=== PATIENT | female | born 1950 | race Caucasian/White ===

== ENCOUNTER 2022-01-27 15:53 | Observation (INO) | payer MEDICARE ==
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
[2022-01-27 17:40] LABS: Absolute Neutrophil Ct (ANC) 6.57 (1.4-6.9); Basophil (Absolute #) 0.03 (0-0.4); Eosinophil % 2.4 % (0.00-5.0); Eosinophil (Absolute #) 0.26 (0-0.5); Hematocrit 40.4 % (35-47); Hemoglobin 12.7 gm/dl (12.0-16.0); Lymphocyte (Absolute #) 2.94 (1.0-4.6); Lymphocytes % 26.7 % (24.0-44.0); Mean Cell Volume 91.8 fl (78-100); Mean Corpuscular Hemoglobin 28.9 pg (26-32); Mean Corpuscular Hgb Concent. 31.4 g/dl (32-36); Mean Platelet Volume 9.8 fl (7.5-11.0); Monocyte (Absolute #) 1.23 (0.0-1.3); Monocytes % 11.2 % (0.0-12.0); Neutrophil % 59.4 % (36.0-66.0); Platelet Count 313 K/mm3 (150-450); Red Cell Distribution Width 15.1 % (11.5-14.0)
[2022-01-27 17:52] LABS: INR 2.09 (0.8-3.0); PROTIME 24.7 SECONDS (9.4-12.5)
[2022-01-27 17:55] LABS: PTT 41.5 SECONDS (25.1-36.5)
[2022-01-27 18:06] LABS: ALBUMIN 3.7 g/dL (3.5-5.0); BILIRUBIN,TOTAL 0.5 mg/dL (0.2-1.3); Calcium 8.7 mg/dL (8.4-10.2); Creatinine 1 1.15 mg/dL (0.52-1.04); EST GLOMERULAR FILTRATION RATE 49.2 ML/MIN; Total Protein 7.2 g/dL (6.3-8.2)
[2022-01-27] MEDS ORDERED: MILK OF MAGNESIA 30 ML PO PRN (20:21)
[2022-01-27] MEDS ORDERED: TYLENOL 325 MG PO PRN (20:21)
[2022-01-27] MEDS ORDERED: MAALOX ES 30 ML UNIT DOSE PO PRN (20:21)
[2022-01-27] MEDS ORDERED: Senokot-S Tablet PO PRN (20:21)
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
[2022-01-27 21:56] LABS: Appearance CLEAR (CLEAR); Bilirubin NEGATIVE (NEGATIVE); Glucose NEGATIVE (NEGATIVE); Ketones NEGATIVE (NEGATIVE); Ph 5.5 (5-6); Protein,Urine Dip NEGATIVE (Negative); RBC TRACE-INTACT Ery/ul (0-5); Specific Gravity 1.025 (1.005-1.025); Urobilinogen 0.2 mg/dL (0-1)
[2022-01-27 21:57] LABS: Dipstick done @ ? MAIN LAB; Nitrite NEGATIVE (NEGATIVE)
[2022-01-27 22:03] LABS: Bacteria RARE /HPF (NEGATIVE); Epithelial Cells RARE /HPF (FEW); Mucus SLIGHT /HPF (NEGATIVE); RBC 0-2 /HPF (0-2)
[2022-01-27 22:08] LABS: Urine Cultured Indicated? YES
[2022-01-27] MEDS ORDERED: Betapace 80 MG ONE (22:50)
[2022-01-27] MEDS: Betapace 80 MG PO SCH ×2 (22:53→23:15)
[2022-01-27] MEDS: Klor Con 10 MEQ PO SCH (22:54)
[2022-01-28] MEDS: Betapace 80 MG PO SCH ×2 (07:26→09:12)
[2022-01-28 08:21] VITALS: O2SAT 94
[2022-01-28] MEDS ORDERED: NON-FORMULARY ITEM (Alendronate Sodium [Alendronate Sodium] 35 MG Tablet) PO SCH (08:45)
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
[2022-01-28] MEDS ORDERED: MEDICATION INTERVENTION MC SCH (09:00)
[2022-01-28] MEDS: Klor Con 10 MEQ PO SCH (09:13)
[2022-01-28] MEDS ORDERED: MYRBETRIQ PO SCH (10:00)
[2022-01-28] MEDS ORDERED: SYNTHROID 125 MCG PO SCH (10:00)
[2022-01-28] MEDS ORDERED: SYNTHROID 100 MCG PO SCH (10:00)
[2022-01-28] MEDS ORDERED: XARELTO 10 MG TABLET PO SCH (10:00)
[2022-01-28] MEDS ORDERED: NON-FORMULARY ITEM (Solifenacin Succinate [Solifenacin Succinate] 5 MG Tablet) PO SCH (10:00)
[2022-01-28] MEDS ORDERED: Protonix 40MG Tablet PO SCH (10:00)
[2022-01-28] MEDS ORDERED: NON-FORMULARY ITEM (Mirabegron [Myrbetriq] 50 MG Tab.Er.24h) PO SCH (10:00)
[2022-01-28] MEDS ORDERED: NORVASC 5 MG PO SCH (10:00)
[2022-01-28] MEDS ORDERED: Cozaar 50 MG PO SCH (10:00)
[2022-01-28] MEDS ORDERED: NON-FORMULARY ITEM (Omeprazole [Omeprazole] 20 MG Capsule.Dr) PO SCH (10:00)
[2022-01-28] MEDS ORDERED: NON-FORMULARY ITEM (Rivaroxaban [Xarelto] 15 MG Tablet) PO SCH (10:00)
[2022-01-28] MEDS ORDERED: Lasix 40 MG PO SCH (10:00)
[2022-01-28 12:26] VITALS: BP 118/66; PULSE 58
--- NOTE | 2022-01-28 14:41 | XRAY ---
Indication: Syncopal episode. Two-dimensional sonogram and color Doppler imaging of the carotid arteries of the neck performed. Comparison: May 14, 2009. Examination of the right carotid circulation demonstrates tortuous common carotid and distal internal carotid arteries. No focal arteriosclerotic plaquing, critical stenosis, or obstruction. PSV of the CCA is 65 cm/s. PSV of the ICA is 85 cm/s. ICA/CCA ratio is 1.3. Normal antegrade vertebral artery flow. Examination of the left carotid circulation demonstrates widely patent common carotid, carotid bulb, internal carotid, and external carotid arteries. PSV of the CCA is 36 cm/s. PSV of the ICA is 51 cm/s. ICA/CCA ratio is 1.4. Normal antegrade vertebral artery flow. Impression: Left and right carotid arteries of the neck remain negative for critical stenosis/obstruction. Velocity measurements and ratios remain negative for hemodynamically significant flow-limiting stenosis.
--- NOTE | 2022-01-28 17:25 | PCM.DS ---
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 DAILY Furosemide 40 mg [Lasix 40 MG] 40 mg PO DAILY Amlodipine Besylate 5 mg [Norvasc 5 mg] 5 mg PO DAILY Losartan Potassium 50 mg [Cozaar 50 MG] 50 mg PO DAILY Sotalol HCl 80 mg [Betapace 80 MG] 40 mg PO BID Omeprazole 20 mg PO DAILY Alendronate Sodium 35 mg PO WEEKLY Mirabegron [Myrbetriq] 50 mg PO DAILY Instructions: Ciprofloxacin (Systemic) Follow up with: PAIGE DAVIS [ACTIVE STAFF] - 01/29/22 10:15 am ELEANOR PEGUERO MD [Primary Care Provider] - 02/05/22 2:45 pm Forms: Discharge Instructions
[2022-02-03] MEDS ORDERED: Fosamax 70 MG PO SCH (06:00)
[2022-02-03] MEDS ORDERED: VITAMIN D2 PO SCH (10:00)
== END 2022-01-28 15:10 | disposition home or self-care (01) ==
LOC: ED 15:53 → MED SURG 20:15
PROVIDERS: ADMIT General Practice; ATTEND General Practice
DX: R55 Syncope and collapse (principal); V47.5XXA Car driver injured in collision with fixed or stationary object in traffic accident, initial encounter; N39.0 Urinary tract infection, site not specified; Z79.899 Other long term (current) drug therapy; M54.2 Cervicalgia; R51.9 Headache, unspecified; M25.562 Pain in left knee; I10 Essential (primary) hypertension; Z20.828 Contact with and (suspected) exposure to other viral communicable diseases
CPT/HCPCS: 36000; 36415; 70450; 71250; 72125; 73560; 80053; 80061; 81015; 83721; 83880; 84484; 85025; 85610; 85730; 87086; 93005; 93041; 93268; 93880; 94760; 99285; A9270-GY; G0378

== ENCOUNTER 2024-03-27 10:34 | Emergency (ER) | payer MEDICARE ==
--- NOTE | 2024-03-27 10:44 | ERPHSYRPT ---
- History of Present Illness Time Seen by Provider: 03/27/24 10:35 Historian: patient Exam Limitations: no limitations Patient Subjective Stated Complaint: Left-sided chest pain Physician History: Patient is a 74-year-old female who takes Xarelto for atrial fibrillation as well as sotalol to help with rate control who comes in with 2 episodes over the last 12 hours of brief intermittent left-sided chest pain. She denies any symptoms currently. She denies any specific triggers to either episode. States both episodes lasted less than 10 minutes. She states she did not have to do anything to resolve her pain. She comes in for further evaluation due to the encouragement of her family. Patient denies any recent fever, cough, pain on inspiration, new back pain, new focal weakness in the arms or legs, new change in vision or slurred speech, new black or red stools, new nausea or vomiting, new blood in her urine, new painful urination or any episodes of vomiting coughing up blood at any time. Patient has not been evaluated or treated by anyone prior to coming to the emergency department today. Timing/Duration: today, yesterday, intermittent, resolved prior to arrival, sudden Activities at Onset: none Quality: aching Location: other (Left lateral chest) Chest Pain Radiation: no radiation Severity of Pain-Max: mild Severity of Pain-Current: none Modifying Factors: Improves With: nothing Associated Symptoms: No nausea, No vomiting, No palpitations, No heartburn, No abdominal pain, No shortness of breath, No cough, No hurts to breathe, No diaphoresis, No chills, No fever, No fatigue, No weakness, No syncope, No rash, No headache, No dizziness, No edema, No back pain Prior Chest Pain/Cardiac Workup: echocardiography Nitro Today/Relief: no nitro taken today Aspirin Treatment Today: no aspirin today Allergies/Adverse Reactions: No Known Drug Allergies Allergy (Verified 07/06/23 12:43) Home Medications: Alendronate Sodium 35 mg PO WEEKLY 01/27/22 [History] Amlodipine Besylate 5 mg [Norvasc 5 mg] 5 mg PO DAILY 01/27/22 [History] Ergocalciferol (Vitamin D2) [Vitamin D2] 1 cap PO WEEKLY 01/27/22 [History] Furosemide 40 mg [Lasix 40 MG] 40 mg PO DAILY 01/27/22 [History] Levothyroxine Sodium [Euthyrox] 125 mcg PO DAILY 01/27/22 [History] Losartan Potassium 50 mg [Cozaar 50 MG] 50 mg PO DAILY 01/27/22 [History] Mirabegron [Myrbetriq] 50 mg PO DAILY 01/27/22 [History] Omeprazole 20 mg PO DAILY 01/27/22 [History] Potassium Chloride 10 meq PO BID 01/27/22 [History] Rivaroxaban [Xarelto] 15 mg PO DAILY 01/27/22 [History] Sotalol HCl 80 mg [Betapace 80 MG] 40 mg PO BID 01/27/22 [History] Hx Tetanus, Diphtheria Vaccination/Date Given: No Hx Influenza Vaccination/Date Given: Yes Immunizations Up to Date: Yes - Review of Systems Constitutional: No Fever, No Chills Eyes: No Symptoms, No Eye Pain, No Vision Changes Ears, Nose, & Throat: No Symptoms, No Nose Congestion, No Nose Discharge, No Painful Swallowing Respiratory: No Cough, No Dyspnea Cardiac: Chest Pain, No Edema, No Syncope, No PND Abdominal/Gastrointestinal: No Abdominal Pain, No Nausea, No Vomiting, No Diarrhea Genitourinary Symptoms: No Dysuria Musculoskeletal: No Back Pain, No Neck Pain Skin: No Rash Neurological: No Dizziness, No Focal Weakness, No Sensory Changes Psychological: No Symptoms, No Anxiety, No Emotional Lability Endocrine: No Symptoms Hematologic/Lymphatic: Easy Bruising, No Easy Bleeding All Other Systems: Reviewed and Negative - Past Medical History Pertinent Past Medical History: Yes Neurological History: No Pertinent History ENT History: No Pertinent History Cardiac History: Arrhythmia, Hypertension Respiratory History: No Pertinent History Endocrine Medical History: Hypothyroidism Musculoskeletal History: No Pertinent History GI Medical History: Hemorrhoids History: No Pertinent History Psycho-Social History: No Pertinent History Female Reproductive Disorders: No Pertinent History - Past Surgical History Past Surgical History: Yes Neuro Surgical History: No Pertinent History Cardiac: No Pertinent History Respiratory: No Pertinent History Gastrointestinal: Cholecystectomy, Hemorrhoidectomy Genitourinary: No Pertinent History Musculoskeletal: Orthopedic Surgery Female Surgical History: No Pertinent History - Social History Smoking Status: Never smoker Exposure to second hand smoke: No Drug Use: none Patient Lives Alone: No - Nursing Vital Signs Nursing Vital Signs: Initial Vital Signs Temperature 98.2 F 03/27/24 10:38 Pulse Rate 63 03/27/24 10:38 Respiratory Rate 16 03/27/24 10:38 Blood Pressure 159/83 03/27/24 10:38 O2 Sat by Pulse Oximetry 96 03/27/24 10:38 Pain Scale Pain Intensity 0 - Physical Exam General Appearance: no apparent distress, alert Eye Exam: PERRL/EOMI, eyes nml inspection Ears, Nose, Throat Exam: normal ENT inspection, TMs normal, pharynx normal, moist mucous membranes Neck Exam: normal inspection, non-tender, supple, full range of motion Respiratory Exam: normal breath sounds, lungs clear, No respiratory distress Cardiovascular Exam: regular rate/rhythm, normal heart sounds Gastrointestinal/Abdomen Exam: soft, normal bowel sounds, No tenderness, No distention, No mass, No guarding, No rebound Back Exam: normal inspection, No CVA tenderness, No vertebral tenderness Extremity Exam: normal inspection, normal range of motion, pelvis stable Neurologic Exam: alert, oriented x 3, cooperative, nremt II-XII nml as tested, nor mal mood/affect, nml cerebellar function, sensation nml, No motor deficits Skin Exam: normal color, warm, dry SpO2 Interpretation: normal O2 Delivery: Room Air - Course Nursing assessment & vital signs reviewed: Yes EKG Interpreted by Me: RATE (65), Sinus Rhythm, NORMAL AXIS, NORMAL INTERVALS, NORMAL QRS, NORMAL ST-T, Other (Normal sinus rhythm 65 bpm, normal axis, normal [place] and QTc intervals, with no signs of any acute ST or T wave changes with low voltage in precordial leads, with no change changes in this EKG in comparison to EKG from 01/28/2022) - Radiology Exams Chest X-ray Interpretation: Reviewed by me, No Pneumonia, No Pneumothorax, No Infiltrates, Nml Mediastinum, Other (Incidental tortuous ascending aorta with osteopenia and mild double curvature scoliosis per radiologist interpreted) Ordered Tests: Active Orders 24 hr Category Date Time Status Manufacturing Advisor STAT Care 03/27/24 10:37 Active EKG-ER Only STAT Care 03/27/24 10:36 Active IV Insertion STAT Care 03/27/24 10:36 Active CHEST 1 VIEW (PORTABLE) Stat Exams 03/27/24 10:36 Completed CBC W DIFF Stat Lab 03/27/24 10:42 Completed CK-Creatinine Phosphokinase Stat Lab 03/27/24 10:42 Completed CMP Stat Lab 03/27/24 10:42 Completed LIPASE Stat Lab 03/27/24 10:42 Completed Lactic Acid Stat Lab 03/27/24 10:47 Completed MAGNESIUM Stat Lab 03/27/24 10:42 Completed NT PRO BNPII Stat Lab 03/27/24 10:42 Completed PROTIME WITH INR Stat Lab 03/27/24 10:42 Completed TROPONIN Q4H Lab 03/27/24 10:42 Completed TROPONIN Q4H Lab 03/27/24 14:45 Ordered TROPONIN Q4H Lab 03/27/24 18:45 Ordered TSH, 3RD Generation Stat Lab 03/27/24 10:42 Completed Lab/Rad Data: Laboratory Result Diagrams 03/27/24 10:42 03/27/24 10:42 Laboratory Results 03/27/24 03/27/24 03/27/24 Range/Units 10:47 10:42 10:42 WBC (4.0-10.5) x10^3/uL RBC (4.1-5.4) x10^6/uL Hgb (12.0-16.0) g/dL Hct (35-47) % MCV (78-100) fL MCH (26-32) pg MCHC (32-36) g/dL RDW (11.5-14.0) % Plt Count (150-450) x10^3/uL MPV (7.5-11.0) fL Gran % (36.0-66.0) % Immature Gran % (Auto) (0.00-0.4) % Nucleat RBC Rel Count (0.00-0.1) % Eos # (Auto) (0-0.5) x10^3/uL Immature Gran # (Auto) (0.00-0.03) x10^3u/L Absolute Lymphs (auto) (1.0-4.6) x10^3/uL Absolute Monos (auto) (0.0-1.3) x10^3/uL Absolute Nucleated RBC (0.00-0.01) x10^3u/L Lymphocytes % (24.0-44.0) % Monocytes % (0.0-12.0) % Eosinophils % (0.00-5.0) % Basophils % (0.0-0.4) % Absolute Granulocytes (1.4-6.9) x10^3/uL Basophils # (0-0.4) x10^3/uL PT 15.7 H (9.4-12.5) SECONDS INR 1.48 (0.8-3.0) Sodium (135-145) mmol/L Potassium (3.5-5.1) mmol/L Chloride (98-107) mmol/L Carbon Dioxide (22-30) mmol/L Anion Gap (5-15) MEQ/L BUN (7-17) mg/dL Creatinine (0.52-1.04) mg/dL Estimated GFR ML/MIN Glucose (74-106) mg/dL Lactic Acid 1.7 (0.4-2.0) Calcium (8.4-10.2) mg/dL Magnesium (1.6-2.3) mg/dL Total Bilirubin (0.2-1.3) mg/dL AST (14-36) U/L ALT (0-35) U/L Alkaline Phosphatase (38-126) U/L Creatine Kinase (30-135) U/L Troponin I < 0.012 (0.000-0.033) ng/mL NT-Pro-B Natriuret Pep (<300) pg/mL Serum Total Protein (6.3-8.2) g/dL Albumin (3.5-5.0) g/dL Lipase (23-300) U/L TSH 3rd Generation (0.470-4.680) mIU/L 03/27/24 03/27/24 Range/Units 10:42 10:42 WBC 7.5 (4.0-10.5) x10^3/uL RBC 4.52 (4.1-5.4) x10^6/uL Hgb 13.5 (12.0-16.0) g/dL Hct 41.1 (35-47) % MCV 90.9 (78-100) fL MCH 29.9 (26-32) pg MCHC 32.8 (32-36) g/dL RDW 13.2 (11.5-14.0) % Plt Count 306 (150-450) x10^3/uL MPV 10.0 (7.5-11.0) fL Gran % 56.6 (36.0-66.0) % Immature Gran % (Auto) 0.3 (0.00-0.4) % Nucleat RBC Rel Count 0.0 (0.00-0.1) % Eos # (Auto) 0.12 (0-0.5) x10^3/uL Immature Gran # (Auto) 0.02 (0.00-0.03) x10^3u/L Absolute Lymphs (auto) 2.32 (1.0-4.6) x10^3/uL Absolute Monos (auto) 0.75 (0.0-1.3) x10^3/uL Absolute Nucleated RBC 0.00 (0.00-0.01) x10^3u/L Lymphocytes % 31.0 (24.0-44.0) % Monocytes % 10.0 (0.0-12.0) % Eosinophils % 1.6 (0.00-5.0) % Basophils % 0.5 (0.0-0.4) % Absolute Granulocytes 4.23 (1.4-6.9) x10^3/uL Basophils # 0.04 (0-0.4) x10^3/uL PT (9.4-12.5) SECONDS INR (0.8-3.0) Sodium 141 (135-145) mmol/L Potassium 3.8 (3.5-5.1) mmol/L Chloride 104 (98-107) mmol/L Carbon Dioxide 29 (22-30) mmol/L Anion Gap 12.0 (5-15) MEQ/L BUN 21 H (7-17) mg/dL Creatinine 1.24 H (0.52-1.04) mg/dL Estimated GFR 45.1 ML/MIN Glucose 199 H (74-106) mg/dL Lactic Acid (0.4-2.0) Calcium 9.7 (8.4-10.2) mg/dL Magnesium 2.0 (1.6-2.3) mg/dL Total Bilirubin 0.80 (0.2-1.3) mg/dL AST 28 (14-36) U/L ALT 21 (0-35) U/L Alkaline Phosphatase 100 (38-126) U/L Creatine Kinase 56 (30-135) U/L Troponin I (0.000-0.033) ng/mL NT-Pro-B Natriuret Pep 115 (<300) pg/mL Serum Total Protein 8.5 H (6.3-8.2) g/dL Albumin 4.3 (3.5-5.0) g/dL Lipase 58 (23-300) U/L TSH 3rd Generation 6.933 H (0.470-4.680) mIU/L - Progress Progress: unchanged Air Movement: good Progress Note: 03/27/24 12:18 Patient remains asymptomatic, denies any chest pain recurrence, denies any shortness of breath, denies any abdominal pain, back pain and feels comfortable being discharged home in does not want a second troponin at this time 03/27/24 12:31 Timing withPatient 74-year-old female who had 2 brief bouts of left-sided chest pain without any radiation, 1 last evening and 1 this morning, so she was brought to the emergency room for further evaluation. Patient was asymptomatic throughout her time in the emergency room, had a negative EKG, negative troponin, no signs of heart failure on examination, on her chest x-ray and had a normal proBNP. Patient did have an elevated thyroid as well as an elevated creatinine, but the creatinine appears to be chronic and she does take medications for her thyroid, so she can fall both physicians up with her primary care physician. Patient did not have any signs of any new acute liver injury or inflammation, normal lipase, and a chest ray is negative for any signs of pneumonia and at this time, patient does not require any further testing or monitoring the emergency room and does not require inpatient mission as she has a low risk HEART score, so per patient's preference, patient will be discharged and follow-up with her physician on 03/28/2024. She understands return back to this emergency room or the nearest emergency room she has any return of her chest pain, new back pain, new dyspnea, new abdominal pain, new nausea or vomiting, new abdominal pain, new melena, hematochezia or hematuria or any other concerning signs or symptoms as at this time she is at low risk for any acute vascular, cardiac, pulmonary, infectious, referred upper GI issues causing her chest pain and patient is to continue taking her anticoagulation and home medications as instructed Blood Culture(s) Obtained: No Antibiotics given: No Counseled pt/family regarding: lab results, diagnosis, need for follow-up, rad results Medical Desision Making - Diagnostic Testing Diagnostic test were ordered, analyzed, and reviewed by me: Yes Radiological Interpretation: Interpreted by me, Reviewed by me, Other (Reviewed radiologist report that confirmed my interpretation) - Risk of complications Low Risk: Low risk of morbidity from additional dx testing or treatment (HEART score: 3, low risk for MACE in the next 30 days) - Departure Departure Disposition: Home Clinical Impression: Elevated blood pressure reading without diagnosis of hypertension Chest pain Qualifiers: Chest pain type: unspecified Qualified Code(s): R07.9 - Chest pain, unspecified Hypothyroid Qualifiers: Hypothyroidism type: unspecified Qualified Code(s): E03.9 - Hypothyroidism, unspecified CKD (chronic kidney disease) stage 3, GFR 30-59 ml/min Qualifiers: Chronic kidney disease stage 3 subtype: stage 3a (GFR 45-59) Qualified Code(s): N18.31 - Chronic kidney disease, stage 3a Condition: Good Critical Care Time: No Referrals: ELEANOR PEGUERO MD [Primary Care Provider] - Follow up with PCP 1 day Instructions: Chest Pain (DC), Hypothyroidism (underactive thyroid), Chronic kidney disease Additional Instructions: Follow-up for chest pain with your doctor as well as keep an eye on your thyroid and kidney function. Return back to the nearest emergency room for any worsening chest pain, new shortness of breath, new back pain, new abdominal pain, new swelling in your legs, abdomen arms or face, new focal weakness in arms or legs, new headache, new vision changes, or any other concerning signs or symptoms that were not present at today's emergency room visit for immediate reevaluation in the nearest emergency department
[2024-03-27 10:46] VITALS: TEMP 98.2
[2024-03-27 10:52] VITALS: RESP 19
[2024-03-27 10:56] LABS: Absolute Neutrophil Ct (ANC) 4.23 x10^3/uL (1.4-6.9); BASOPHIL % 0.5 % (0.0-0.4); Basophil (Absolute #) 0.04 x10^3/uL (0-0.4); Eosinophil % 1.6 % (0.00-5.0); Eosinophil (Absolute #) 0.12 x10^3/uL (0-0.5); Hematocrit 41.1 % (35-47); Hemoglobin 13.5 g/dL (12.0-16.0); IMMATURE GRAN # 0.02 x10^3u/L (0.00-0.03); IMMATURE GRAN % 0.3 % (0.00-0.4); Lymphocyte (Absolute #) 2.32 x10^3/uL (1.0-4.6); Mean Cell Volume 90.9 fL (78-100); Mean Corpuscular Hemoglobin 29.9 pg (26-32); Mean Corpuscular Hgb Concent. 32.8 g/dL (32-36); Monocyte (Absolute #) 0.75 x10^3/uL (0.0-1.3); Neutrophil % 56.6 % (36.0-66.0); Platelet Count 306 x10^3/uL (150-450); Red Blood Count 4.52 x10^6/uL (4.1-5.4); Red Cell Distribution Width 13.2 % (11.5-14.0); White Blood Count 7.5 x10^3/uL (4.0-10.5)
[2024-03-27 11:09] LABS: INR 1.48 (0.8-3.0); PROTIME 15.7 SECONDS (9.4-12.5)
--- NOTE | 2024-03-27 11:27 | XRAY ---
Indication: Left chest pain. Short of breath. Comparison: August 04, 2019 Portable chest remains inflated and clear. Heart not enlarged again with tortuous descending aorta. Bony thorax intact again with osteopenia and mild double curvature scoliosis. Impression: Continue nonacute chest with chronic features.
[2024-03-27 11:36] VITALS: O2SAT 96
[2024-03-27 11:39] LABS: ALBUMIN 4.3 g/dL (3.5-5.0); BILIRUBIN,TOTAL 0.8 mg/dL (0.2-1.3); Calcium 9.7 mg/dL (8.4-10.2); Creatinine 1 1.24 mg/dL (0.52-1.04); EST GLOMERULAR FILTRATION RATE 45.1 ML/MIN; Potassium 3.8 mmol/L (3.5-5.1); TSH, 3RD Generation 6.933 mIU/L (0.470-4.680); Total Protein 8.5 g/dL (6.3-8.2)
[2024-03-27 12:41] VITALS: BP 136/92; PULSE 54
== END 2024-03-27 12:49 | disposition home or self-care (01) ==
LOC: ED 10:34
DX: R07.9 Chest pain, unspecified (principal); E03.9 Hypothyroidism, unspecified; I12.9 Hypertensive chronic kidney disease with stage 1 through stage 4 chronic kidney disease, or unspecified chronic kidney disease; N18.31 Chronic kidney disease, stage 3a; Z79.01 Long term (current) use of anticoagulants; Z79.899 Other long term (current) drug therapy
CPT/HCPCS: 36000; 36415; 71045; 80053; 82550; 83605; 83690; 83735; 83880; 84443; 84484; 85025; 85610; 93005; 93041; 99284